=== PATIENT | female | born 2005 | race Caucasian/White ===

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

== ENCOUNTER 2024-06-10 22:26 | Inpatient (IN) ==
[2024-06-10] MEDS: Charcoal ACTIVATED 25 GM/120 ML BTL PO ONE (22:50)
[2024-06-10 22:52] LABS: ABS Lymphocytes 2.8 10^3/uL (1.0-4.8); ABS Monocytes 0.7 10^3/uL (0.0-0.9); ABS Neutrophils 3.5 10^3/uL (1.5-7.6); ABS Nucleated RBC 0.01 10^3/ul; Eosinophil % 0.3 %; Hematocrit 38.5 % (35-45); Hemoglobin 12.8 g/dL (11.5-14.3); Lymphocyte % 39.6 %; Mean Corpuscular Hemoglobin 28.1 pg (27-33); Mean Corpuscular Hgb Conc 33.1 g/dL (31-36); Mean Corpuscular Volume 84.6 fL (80-97); Nucleated Red Blood Cells % 0.1 %/100WBC (0.0-0.8); Platelet Count 292 10^3/uL (150-450); Red Blood Count 4.55 10^6/uL (3.63-4.92); Red Cell Distribution Width 14.1 % (12-17); White Blood Count 7.2 10^3/uL (3.8-11.8)
[2024-06-10 23:33] LABS: ALT 27 U/L (7-52); Acetaminophen < 15 mcg/mL; Albumin 4.3 g/dL (3.2-5.2); Albumin/Globulin Ratio 1.9 (1-3); Alcohol, S < 13 mg/dL (<13); Alkaline Phosphatase 61 U/L (35-149); Anion Gap 9 mmol/L (2-16); Blood Urea Nitrogen 8 mg/dL (6-24); CO2 Carbon Dioxide 25 mmol/L (22-32); Calcium 9.4 mg/dL (8.6-10.3); Chloride 106 mmol/L (101-111); Creatinine, Serum 0.67 mg/dL (0.51-0.95); Globulin 2.3 g/dL (2-4); Glucose 114 mg/dL (70-100); HCG Pregnancy < 0.60 mIU/mL; Magnesium 1.6 mg/dL (1.9-2.7); Salicylate < 2.50 mg/dL (<30); Sodium 140 mmol/L (135-145); Total Bilirubin 0.3 mg/dL (0.2-1.0); Total Protein 6.6 g/dL (6.4-8.9)
[2024-06-10 23:51] LABS: TSH Ultra Thyroid Stim Horm 0.36 mcIU/mL (0.34-5.60)
[2024-06-11 00:30] LABS: Potassium Redraw 4.1 mmol/L (3.5-5.0)
[2024-06-11 01:38] LABS: Urine Appearance Clear; Urine Bilirubin Negative (Negative); Urine Blood 3+ (Negative); Urine Color Colorless; Urine Glucose Negative (Negative); Urine Ketones Negative (Negative); Urine Nitrite Negative (Negative); Urine Protein Negative (Negative); Urine Specific Gravity 1.009 (1.002-1.030); Urine Urobilinogen Negative (Negative); Urine pH 7.5 (5.0-8.0)
[2024-06-11 01:42] LABS: Urine Benzodiazepine Screen None Detected (None Detect); Urine Cannabinoids Screen None Detected (None Detect); Urine Opiates Screen None Detected (None Detect)
[2024-06-11 01:46] LABS: Urine Bacteria Absent /HPF (Absent); Urine Red Blood Cell 3+(>10/hpf) /HPF (0-Trace); Urine Squamous Epithelial Cell Present /HPF (Absent); Urine White Blood Cell 1+(6-10/hpf) /HPF (0-Trace)
[2024-06-11 14:27] VITALS: BP 108/75
[2024-06-11] MEDS: Al Hydrox/Mg Hydrox/Simet LIQ 30 ML UDC PO PRN (17:38)
[2024-06-12] MEDS ORDERED: Lidocaine 1% VIAL 10 MG/ML 30 ML VIAL ONE (02:08)
[2024-06-12] MEDS: Polyethylene Glycol 3350 17 GM PACKET PO PRN (17:54)
[2024-06-13] MEDS: Albuterol HFA INHALER 8 gm MDI INH PRN (19:10)
[2024-06-15 08:23] LABS: HDL Cholesterol 45.9 mg/dL
[2024-06-17 23:07] LABS: Clozapine 368 ng/mL (350-600); Clozapine & Norclozapine Level 477 ng/mL; Norclozapine 109 ng/mL
== END 2024-06-16 12:51 | disposition home or self-care (01) | DRG 753 ==
LOC: ED 22:26 → EDHOLD 06-11 10:36 → BSU 06-11 12:21
PROVIDERS: ADMIT Psychiatry & Neurology Psychiatry; ATTEND Psychiatry & Neurology Psychiatry